=== PATIENT | male | born 1985 | race Caucasian/White ===

== ENCOUNTER 2024-01-08 17:03 | Emergency (ER) | payer BC, SELFPAY ==
[2024-01-08 17:08] VITALS: BP 154/103
--- NOTE | 2024-01-08 17:40 | ED.GENMED ---
Addendum entered and electronically signed by Omar Thomas DO 01/08/24 20:08:
update
prior to dc, pt feeling looking much better
trismus better, voice better
dw pt + spouse
Original Note:
History of Present Illness
General
Chief Complaint: Throat Problem
Source: patient and spouse
Exam Limitations: none
Time Seen by Provider: 01/08/24 17:19
Nursing documentation reviewed up to this point in time: agreed with
History of Present Illness
History of Present Illness:
38-year-old male for 5 days of sore throat use [id number] remedies went to an urgent care was given a lidocaine like product no relief had some fever and chills, pain is on the left side is in his ear having trouble opening his mouth trouble
eating and drinking
Past History
Past History
ED Past Medical History: None
ED Past Surgical History: None
Social History
Tobacco: Smoker
Alcohol: Occasional
Drug: None
Personal:
Living: with family
Employment: Employed
Review of Systems
Review of Systems
All Other Systems: Not applicable
Constitutional: Reports fever
EENT: Reports sore throat, mouth pain, mouth swelling and other (Earache)
ABD/GI: Reports no symptoms
: Reports no symptoms
Musculoskeletal: Reports no symptoms
Skin: Reports no symptoms
Phy Exam
Physical Exam
Physical Exam:
Physical Exam
General: Uncomfortable appearing male hoarse voice
Neck: 1-2 finger trismus asymmetric swelling of the left tonsil contralateral displacement of the uvula
Heart: Tachycardic
Lungs: no acute respiratory distress.
t
Neuro: alert and oriented. no focal neurological deficits
Skin: no rash
Psychiatric: well kept. interactive and cooperative
Extremities: no edema.
Course
Orders/Labs/Results
Orders:
Orders
01/08/24 17:31
0.9% Sodium Chloride 1000 ml [Nss] 1,000 ml IV BOLUS
Acetaminophen 1000MG/100Ml [Ofirmev] 1,000 mg in 100 ml IV ONCE
Acetaminophen IV Indication:: No [place] & No Enteral Access
Dexamethasone Sod Phosphate [Decadron] 10 mg IV NOW STA
Ketorolac [Toradol] 30 mg IV NOW STA
01/08/24 17:52
Complete Blood Count/With Diff Urgent
Comprehensive Metabolic Panel Urgent
Manual Differential Urgent
01/08/24 18:11
CT Neck With Iv Contrast Urgent
Comment:
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
01/08/24 18:27
Ampicillin/Sulbactam 3 G [Unasyn] 3 gm 0.9% Sodium Chloride 100 ml [Nss] 100 ml IV NOW
Abnormal Lab Results
01/08/24
17:52
WBC 14.5 H 10^3/uL
(4.8-10.8)
MPV 11.5 H fL
(7.4-10.4)
Abs Neuts (Manual) 9.1 H 10^3/uL
(1.4-6.5)
Lymphocytes (Manual) 17 L %
(20-51)
Glucose 108 H mg/dl
(70-99)
01/08/24 17:52
01/08/24 17:52
Vital Signs
Initial and Last Documented VS:
Initial Vital Signs
Temp Pulse Resp BP Pulse Ox
99.9 F 89 20 154/103 99
01/08/24 17:08 01/08/24 17:08 01/08/24 17:08 01/08/24 17:08 01/08/24 17:08
Last Documented Vital Signs
Temp Pulse Resp BP Pulse Ox
99.9 F 89 20 154/103 99
01/08/24 17:08 01/08/24 17:08 01/08/24 17:08 01/08/24 17:08 01/08/24 17:08
Procedures
Other
Indication for procedure:: Peritonsillar abscess
Procedure completed by: Martha
Consent form signed: No
Additional Procedure:
Verbal consent, timeout, local anesthetic 18-gauge needle 3 sticks unsuccessful drainage will proceed with CT scanning
MDM/Problems Addressed
Differential Diagnosis Includes:
Peritonsillar abscess or strep pharyngitis strep throat doubt epiglottitis or retropharyngeal abscess
MDM/Problems Addressed:
Sore throat
*Pulse Oximetry
Patient hypoxic: no
*Critical Care Note
Total Time (30-74mins, 75-104mins- exclusive of procedures): Not Applicable
Update Note
Update Note:
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
Update, CT noted, perhaps he drained spontaneously when I injected him is he feeling much better will start him on some antibiotics ENT follow-up ER for worsening symptoms
ED Attending Note
-
Portions of this chart may have been created with voice recognition software.� Occasional wrong word or��sound alike� substitutions may have occurred due to the inherent limitations of voice recognition software.
Discharge Plan
Departure
Patient Disposition: Home (Routine Discharge)
Date of Disposition: 01/08/24
Time of Disposition: 19:58
Patient with high blood pressure during this ER visit?: No
Condition: Good
Discharge Problem:
Pharyngitis
Instructions: Sore Throat, Adult (DC), Strep throat in adults
Prescriptions:
New
methylprednisolone [Methylpred DP] 4 mg tablets,dose pack
See Rx Instructions .ROUTE .COMPLEX Qty: 21 0RF
Rx Instructions:
for 6 days
amoxicillin-pot clavulanate 875-125 mg tablet
1 tab PO BID Qty: 20 0RF
No Action
ibuprofen 200 mg Tablet
400 mg PO Q6HPRN PRN (Reason: mild pain)
Referrals:
Kvng Fowler DO [Family Provider] -
Narinder Marcial MD [Active] - Next open appointment
Activity Restrictions/Additional Instructions:
Drink plenty of fluids, antibiotics and steroids as prescribed
Tylenol or ibuprofen for fever
Return to the ER for worsening symptoms follow-up with Dr. Marcial Ear Nose Throat Specialist
Interventions
Interventions:
*Risk Screen - Suicide Last Done: 01/08/24 18:19
*General Assessment Last Done: 01/08/24 19:36
*Neglect/Abuse Screening Last Done: 01/08/24 18:19
ED-EENT Assessment Last Done: 01/08/24 18:19
ED- Pulmonary Assessment Last Done: 01/08/24 18:19
Discharge Date and Time
Print Language: SLOVENIAN
[2024-01-08] MEDS: NSS 1000 IV (17:51)
[2024-01-08] MEDS: OFIRMEV 100 IV (17:52)
[2024-01-08] MEDS: DECADRON 10 MG IV (17:53)
[2024-01-08] MEDS: TORADOL 30 MG IV (17:53)
[2024-01-08 17:56] VITALS: BMI 38.1
[2024-01-08 18:09] LABS: Hematocrit 43.9 % (39.0-52.0); Hemoglobin 15.7 g/dL (13.0-18.0); Mean Corp Hgb Conc. 35.8 g/dL (33.0-37.0); Mean Corpuscular Hgb 29.4 pg (27.0-31.0); Mean Corpuscular Volume 82.2 fL (80.0-94.0); Mean Platelet Volume 11.5 fL (7.4-10.4); Platelet Count 194 10^3/uL (130-400); Red Blood Cell Count 5.34 10^6/uL (4.70-6.10); Red Cell Dist. Width 11.5 % (11.5-14.5); White Blood Cell Count 14.5 10^3/uL (4.8-10.8)
[2024-01-08 18:22] LABS: ALT (SGPT) 38 U/L (0-50); AST (SGOT) 26 U/L (17-59); Albumin 4.6 g/dl (3.5-5.0); Alkaline Phosphatase 89 U/L (38-126); Blood Urea Nitrogen 12 mg/dl (9-20); Calcium 9.7 mg/dl (8.4-10.2); Carbon Dioxide 27 mmol/L (22-30); Chloride 103 mmol/L (98-107); Estimated Creatinine Clearance > 125 ml/min; Glucose 108 mg/dl (70-99); Potassium 4.5 mmol/L (3.5-5.1); Sodium 138 mmol/L (135-145); Total Bilirubin 0.9 mg/dl (0.2-1.3); Total Protein 7.5 g/dl (6.3-8.2); eGFR > 60.00
[2024-01-08 18:40] LABS: Absolute Neutrophils -Man Diff 9.1 10^3/uL (1.4-6.5); Atypical Lymphocytes 10 %; Band Neutrophils 2 % (0-3); Eosinophils 3 % (0-6); Lymphocytes 17 % (20-51); Monocytes 7 % (2-9); Segmented Neutrophils 61 % (42-75)
[2024-01-08 18:41] LABS: Normal RBC Morphology Yes; Platelets Checked Yes; Total Cells Counted 100
[2024-01-08] MEDS: UNASYN IV (19:09)
[2024-01-08 20:00] VITALS: BP 154/70
== END 2024-01-08 20:11 | disposition home or self-care (01) ==
LOC: EMR 17:03
PROVIDERS: EMERGENCY PHYSICIAN Emergency Medicine; FAMILY PHYSICIAN Family Medicine
DX: J02.9 Acute pharyngitis, unspecified (principal); F17.200 Nicotine dependence, unspecified, uncomplicated
CPT/HCPCS: 99284; 42700; 96374; 96375; 70491; 80053; 85025; Q9967

== ENCOUNTER 2024-09-19 19:03 | Emergency (ER) | payer BC, SELFPAY ==
[2024-09-19 19:17] VITALS: BP 141/99
[2024-09-19 19:58] LABS: COVID-19 Antigen Negative (Negative)
--- NOTE | 2024-09-19 20:43 | ED.GENMED ---
History of Present Illness
General
Chief Complaint: Cold/Flu/URI Symptoms
Time Seen by Provider: 09/19/24 20:03
History of Present Illness
History of Present Illness:
Patient is a 39-year-old man presenting to the emergency department for recent. Patient states for the past past 4 days he has congestion sore throat, headache and cough. No fevers. He has been taking some [id number] medications without
relief. No changes to his voice. No difficulty swallowing. No chest pain. No shortness of breath.
Past History
Past History
ED Past Medical History: None
ED Past Surgical History: None
Social History
Tobacco: Smoker
Alcohol: Occasional
Drug: None
Personal:
Living: with family
Employment: Employed
Phy Exam
Physical Exam
Physical Exam:
GENERAL: in no acute distress
HEENT: normocephalic, extraocular movements intact, moist oral mucosa, mild posterior oropharynx erythema, no uvula deviation, no obvious fluctuance to the peritonsillar area, bilateral tympanic membranes clear
NECK: normal inspection
RESPIRATORY: no respiratory distress, clear to auscultation bilaterally
CARDIOVASCULAR: regular rate and rhythm
ABDOMEN/: soft, non-distended, non-tender to palpation, no rebound or guarding
EXTREMITIES: non-tender, no edema/swelling
NEUROLOGIC: awake and alert, moves all extremities
SKIN: warm
Course
Orders/Labs/Results
Orders:
Orders
09/19/24 19:28
COVID-19 Antigen Urgent
Source: Nasal Swab
Influenza A+B Rapid Molecular Urgent
JAELYN Source: Nasal Swab
Specimen Description:
Vital Signs
Initial and Last Documented VS:
Initial Vital Signs
Temp Pulse Resp BP Pulse Ox
98.7 F 84 18 141/99 98
09/19/24 19:17 09/19/24 19:17 09/19/24 19:17 09/19/24 19:17 09/19/24 19:17
Last Documented Vital Signs
Temp Pulse Resp BP Pulse Ox
98.7 F 84 18 141/99 98
09/19/24 19:17 09/19/24 19:17 09/19/24 19:17 09/19/24 19:17 09/19/24 20:06
MDM/Problems Addressed
Differential Diagnosis Includes:
Patient is a 39-year-old male presenting to the emergency department with 4 days of cough congestion runny nose headache and sore throat. On arrival patient is afebrile. His lungs were clear as well as his tympanic membranes. He did have some
mild erythema to his posterior oropharynx. Likely viral upper respiratory infection. History exam not consistent with peritonsillar abscess or bacterial sinusitis/pharyngitis. He does state that he has history of sinusitis and has had received
antibiotics in the past. We did discuss that given he is only on 4 days of symptoms we will hold off on antibiotics. Patient advised to come back and be evaluated if symptoms improved then worsen again or if symptoms last longer for 10 days.
*Critical Care Note
Total Time (30-74mins, 75-104mins- exclusive of procedures): Not Applicable
ED Attending Note
-
Portions of this chart may have been created with voice recognition software.� Occasional wrong word or��sound alike� substitutions may have occurred due to the inherent limitations of voice recognition software.
Discharge Plan
Departure
Patient Disposition: Home (Routine Discharge)
Date of Disposition: 09/19/24
Time of Disposition: 20:41
Patient with high blood pressure during this ER visit?: No
Discharge Problem:
Upper respiratory infection
Instructions: Viral Upper Respiratory Infection, Adult (DC)
Prescriptions:
No Action
ibuprofen 200 mg Tablet
400 mg PO Q6HPRN PRN (Reason: mild pain)
methylprednisolone [Methylpred DP] 4 mg tablets,dose pack
See Rx Instructions .ROUTE .COMPLEX Qty: 21 0RF
Rx Instructions:
for 6 days
amoxicillin-pot clavulanate 875-125 mg tablet
1 tab PO BID Qty: 20 0RF
Referrals:
Laci Dolan, [Family Provider] -
Activity Restrictions/Additional Instructions:
You were seen in the Emergency Department today for upper respiratory infection. Please use Tylenol/Motrin, Sudafed, Mucinex, nasal saline and other supportive measures as discussed. At this time we have not started antibiotics. If your symptoms
improve then worsen or if your symptoms last more than 10 days please make sure you are reevaluated.
We would like for you to follow up with your primary care physician for further evaluation. If you experience fever, worsening of your symptoms, or develop any other new or concerning symptoms, please return to the Emergency Department immediately.
Please see the attached sheet for additional information.
Interventions
Interventions:
*Risk Screen - Suicide Last Done: 09/19/24 19:17
*Neglect/Abuse Screening Last Done: 09/19/24 19:17
*ED COVID-19 Vaccine History Last Done: 09/19/24 20:06
ED- Pulmonary Assessment Last Done: 09/19/24 20:06
Discharge Date and Time
Print Language: SLOVAK
== END 2024-09-19 20:50 | disposition home or self-care (01) ==
LOC: EMR 19:03
PROVIDERS: Emergency Medicine; EMERGENCY PHYSICIAN Student in an Organized Health Care Education/Training Program; FAMILY PHYSICIAN General Practice
DX: J06.9 Acute upper respiratory infection, unspecified (principal); F17.200 Nicotine dependence, unspecified, uncomplicated; Z11.52 Encounter for screening for COVID-19
CPT/HCPCS: 99283; 87502; 87811